=== PATIENT | male | born 1995 | race Caucasian/White ===

== ENCOUNTER 2016-12-21 23:22 | Emergency (ER) | payer BC ==
[~2016-12-21] VITALS: Ht 182.9 cm; Wt 107.0 kg
[2016-12-21 23:32] VITALS: BP 134/81; PULSE 89; RESP 18; TEMP 98.7; O2SAT 97
--- NOTE | 2016-12-21 23:59 | PD ---
HPI Chief Complaint: Skin Problem Time Seen by Provider: 23:53 Travel History International Travel<30 days: No Contact w/Intl Traveler<30days: No Traveled to known affect area: No History of Present Illness HPI The patient is a 21-year-old male that has had a cyst on his buttocks since he was a freshman in high school. 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 Apparently, the cyst as worked around and dissected inferiorly and opened up another wound. It started bleeding slightly so he came in to emergency department tonight for this. He denies any fever. He denies any history of diabetes. His last tetanus shot was likely over 10 years ago. He apparently has never seen a colorectal surgeon. This abscess has been draining for years into his underwear. [facility] Past Medical History Diminished Hearing: No Immunizations Current: Yes Social History Alcohol Use: Yes (socially) Tobacco Use: No Substance Use: No Allergies-Medications (Allergen,Severity, Reaction): Coded Allergies: No Known Allergies (Unverified , 12/22/16) Reported Meds & Prescriptions Reported Meds & Active Scripts Active No Active Prescriptions or Reported Medications Review of Systems Except as stated in HPI: all other systems reviewed are Neg Physical Exam Narrative GENERAL: Well-nourished, well-developed patient in slight apparent distress with his pilonidal cyst discomfort. His vital signs are normal. SKIN: Warm and dry. There is a pilonidal cyst which is tender and has some granulomatous tissue growing for what appears to be a previous incision years ago. He also has what appears to be an inferior out with for drainage. This does not appear to be a rectal fistula but appears to be simply an outlet for his pilonidal cyst drainage. He is not particularly tender around the rectum. No abscess is noted around the rectum. HEAD: Normocephalic. EYES: No scleral icterus. No injection or drainage. NECK: Supple, trachea midline. No JVD or lymphadenopathy. CARDIOVASCULAR: Regular rate and rhythm without murmurs, gallops, or rubs. RESPIRATORY: Breath sounds equal bilaterally. No accessory muscle use. GASTROINTESTINAL: Abdomen soft, non-tender, nondistended. MUSCULOSKELETAL: No cyanosis, or edema. BACK: Nontender without obvious deformity. No CVA tenderness. Data Data Last Documented VS Vital Signs Date Time Temp Pulse Resp B/P Pulse Ox O2 Delivery O2 Flow Rate FiO2 1/27/17 23:58 18 12/21/16 23:32 98.7 89 134/81 97 Orders Wound Culture And Gram Stain (12/21/16 23:53) Tetanus/Diphtheria Tox Adult (Tetanus/Di (12/22/16 00:00) Lidocai-Epi 1%-1:100,000 Inj (Xylocaine- (12/22/16 00:15) MDM Medical Decision Making Medical Screen Exam Complete: Yes Emergency Medical Condition: Yes Medical Record Reviewed: Yes Differential Diagnosis Pilonidal cyst abscess, rectal fistula, perianal abscess Narrative Course The patient has a pilonidal cyst that has been draining. A fair amount of hair was recovered from the cyst cavity. He will need to see a colorectal surgeon for definitive treatment of this. In the meantime, he should sit in a tub of warm water 3 times daily. On Saturday he should call the colorectal surgeon to set up an appointment. Procedures Procedure Narrative The area was prepped with Betadine. The patient had a field block done with lidocaine and epinephrine. A #11 blade was used to open into the abscess cavity. A fair amount of old hair and debris was removed from the abscess cavity. The abscess cavity has been draining and very little pus was recovered. Diagnosis Primary Impression: Pilonidal cyst with abscess Additional Impression: Encounter for incision and drainage procedure Additional Instructions: As we discussed, call the colorectal surgeon on Saturday to set up an appointment. Sit in a tub 3 times daily for 30 minutes to clean the wound. Med/Other Pt SpecificInfo: Prescription(s) given Scripts Clindamycin (Cleocin)300 Mg [id number] Mg PO Q6H #40 CAP Ref 0 Prov:Arben Garcia MD 12/22/16 Disposition: 01 DISCHARGE HOME Condition: Stable Arben Garcia MD Dec 21, 2016 23:59
[2016-12-22] MEDS ORDERED: LIDOCAINE 1%/EPINEPHrine 1:100,000 SOLN 20 ML VIAL INFIL ONE
[2016-12-22] MEDS ORDERED: TETANUS/DIPHTHERIA TOXOID ADULT 0.5 ML VIAL IM ONE
[2016-12-22] MEDS ORDERED: LIDOCAINE 1%/EPINEPHrine 1:100,000 SOLN 30 ML VIAL INFIL ONE (00:15)
[2016-12-22] MEDS ORDERED: CLEO300C2 PO (00:26)
[2016-12-22] MEDS ORDERED: CLINDAMYCIN 150 MG CAP PO ONE (00:30)
[2016-12-22 00:36] VITALS: BP 158/78; PULSE 78; RESP 16; TEMP 97.9; O2SAT 98
== END 2016-12-22 00:57 | disposition home or self-care (01) ==
LOC: PHED 23:22
DX: L05.01 Pilonidal cyst with abscess (principal); B95.61 Methicillin susceptible Staphylococcus aureus infection as the cause of diseases classified elsewhere; Z23 Encounter for immunization
CPT/HCPCS: 10080; 86403; 87070; 87186; 90471; 90714